=== PATIENT | female | born 1980 | race Caucasian/White ===

== ENCOUNTER 2017-11-27 09:13 | Day surgery (SDC) | payer OTHER, SELFPAY ==
[2017-11-18 15:24] VITALS: BMI 32.1
[2017-11-27] VITALS (12 sets, daily range): BP systolic 98–125; BP diastolic 51–71; PULSE 61–90; RESP 13–17; TEMP 36.2–37; O2SAT 92–100; BMI 32.1
[2017-11-27] MEDS: LACTATED RINGERS 1,000 ML 42 ML IV ×2 (09:30→12:30)
--- NOTE | 2017-11-27 10:24 | PM.PREOP ---
Pre-operative Note Interval Note Pre-op Check: History & Physical Reviewed by Physician
[2017-11-27] MEDS: CEFAZOLIN 1 GM VIAL 2 GM IV (10:58)
--- NOTE | 2017-11-27 11:28 | SUR.OPER ---
Supine on padded OR bed, head on pillow, arms secured on padded arm boards at <90 degrees abduction, right leg is under control of surgeon, left leg is taped over the blanket to the bed, safety belt at thigh.
[2017-11-27] MEDS: BUPIVACAINE 0.25% (PF) 30 ML VIAL INJ (11:36)
[2017-11-27] MEDS: fentaNYL 100 MCG/2 ML INJ 25 MCG IV ×2 (13:32→13:39)
--- NOTE | 2017-11-27 13:44 | PM.OP.1 ---
Operative Date/Time/Diagnoses - Date of procedure: 11/27/17 Time of procedure: 11:44 Pre-op diagnosis: Right hallux valgus right foot bunion Post-op diagnosis: same Procedure & Clinicians Procedure: Right 1st metatarsal osteotomy Modified Rea procedure Right foot bunionectomy Same procedure as scheduled: Yes Indications: This is a 37-year-old female with many years of symptomatic bunions. She had pain despite shoe wear modification and activity modification. She desires to wear reasonable shoes. 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 The risks and benefits and alternatives to surgery were discussed. Risks include pain bleeding infection nonunion malunion transfer metatarsalgia recurrence hallux varus implant prominence damage to nearby structures numbness DVT PE and anesthetic risks. She signed a written consent form. Surgeon: Harjinder [place] Sales Executive: Etelvina Conner Click Yes if Unassisted: No Anesthesia Type: General and Local Operative Notes Findings: Large bunion with cartilage loss over the medial aspect of the 1st metatarsal head. Closure Type: primary Specimen(s): none sent Implants & Drains: 2.0 mm stainless steel screws X 2 Synthes Estimated Blood Loss (mL): 10 Blood products transfused: none Tourniquet time (min): 103 Procedure in detail: The patient was met in the preop hold area on the day of the procedure the operative extremity was signed. Consent was verified. She desired to proceed. She was brought to the operating room and surrendered to anesthesia. Once general anesthesia been obtained she was placed in the supine position all bony prominences well padded. She was then prepped and draped in the standard sterile fashion. Surgical time-out was held again for the patient procedure identity allergies antibiotics images all were in agreement we proceeded. An Esmarch was used to exsanguinate the limb and the thigh tourniquet was elevated to 250 mm of mercury. Fluoroscopy was used to identify the TMT and MTP joints as well as to jos the trajectory of the desired osteotomy. The sesamoids were also localized under fluoroscopy and a 3 cm incision was made just lateral to that. Scissors were used to dissect longitudinally down to the sesamoid. The intermetatarsal ligaments and the attachment of the adductor was identified. Flexor hallucis brevis was identified and protected. I then sharply released the intermetatarsal ligament and the adductor from the sesamoid and the proximal phalanx. I then sharply incised the interval between the sesamoid and the capsule to allow for free mobility. Satisfied with my release I proceeded to the 1st metatarsal osteotomy. An incision was made medially in line with the 1st metatarsal from the base of the proximal phalanx up to the tarsometatarsal joint. Scissor dissection was used distally to identify the branch of the nerve and was protected throughout the case. Once down to the capsular layer I created full-thickness skin flaps. I then made a longitudinal incision in the capsule and periosteum and freed the capsule from the the foot surrounding bone sharply with a knife. Once the capsule was adequately dissected and freed the periosteum more proximally through the shaft taking care to not release soft tissue off the plantar surface of the distal metatarsal. Two small windows were made for retractors. Then identified the osteotomy site centrally in the metatarsal head and then proximally at the flare. I started the osteotomy at the dorsal 1/3 margin and and distally and the plantar 1/3 margin proximally. I then made a transverse distal cut with the appropriate angle. I then left the saw blade in place and made a perpendicular cut to that plantarly in the proximal transverse cut. A 2nd proximal transverse cut was made leaving a 4 mm bone block for to be removed. I then made a longitudinal cut connected the transverse cuts. I then used a [place] to separate the periosteum on the lateral side and essentially complete the cuts. I then grasped the distal dorsal shaft piece with a towel clamp trans plated it medially while my finger translated the metatarsal head laterally. I then placed a scarf metatarsal the clamp and took x-rays confirming that I liked the shift. I pulled on the plantar capsule and found I was able to reduce the sesamoids nicely. Satisfied with the reduction and the bunion correction I placed 2 screws in lag fashion from dorsal to the plantar surface I ensured that the distal screw was unicortical and did not go through the head. Images were then taken and the clamp was removed. I then used a saw to take the medial shelf off as well as a small portion of the metatarsal head that was still prominent. I ensured to leave a significant amount to provide adequate bony support and prevent hallux varus. Those bony fragments were placed plantarly at the proximal osteotomy site. I assessed that the 1st toe did not impinge upon the 2nd and that an Nick osteotomy was not necessary. I then irrigated the wound copiously and sharply removed excess capsular tissue. I started the closure with the capsular tissue and performed a plantar distal to proximal dorsal shift, this took the toe out of pronation and finalize the reduction of the sesamoids. After placing 3 of the sutures in a figure 8 fashion I then closed the periosteal layer with 0 Vicryl. 3 0 Vicryl was placed in the dermis and 3 O nylon vertical mattress sutures were placed for in the skin. A 10 cc of 0.25% Marcaine without epinephrine were placed about the incisions. In a sterile dressing was applied. A bunion dressing was applied as well to hold the toe in adequate position. Complications: none Condition: stable Disposition: same day surgery Plan for aftercare: Leave dressing on until follow-up in 2 weeks. At 2 weeks dressing and sutures will be removed. I will replace dressing at the 2 week jos which she will wear for the next 2 weeks. Follow-up at 4 weeks and will then allow for weight-bearing in a postoperative shoe. She can transition to normal shoes at 8 weeks.
[2017-11-27] MEDS: MEPERIDINE 50 MG/ML IM (13:49)
[2017-11-27] MEDS: fentaNYL 100 MCG/2 ML INJ 50 MCG IV ×3 (13:55→14:14)
[2017-11-27] MEDS: ONDANSETRON 4 MG/2 ML INJ IV (13:57)
[2017-11-27] MEDS: LORazepam 2 MG/ML SYRINGE 0.5 MG IV ×2 (14:00→16:01)
[2017-11-27] MEDS: OXYCODONE/ACETAMINOPHEN 5/325 TABLET 2 TAB PO (14:34)
--- NOTE | 2017-11-27 16:12 | SUR.PHASEII ---
pt with pain ..and nausea.. had 2 percocet an hour ago and prior to that iv meds.. foot is wnl..nv checks normals; anesthesia gone.. dr marsh tracked down and ordered 2 additional percocet... pt nausea better after reglan at 1530.. dressing in cdi..awaiting better pain control before discharge
--- NOTE | 2017-11-27 16:46 | SUR.PHASEII ---
1620.. pt feeling much better.. pain3/10.. no nausea... alert.. needs to void.. wants to go home..nv checks wnl.. dressing cdi.. postop shoe and ice on.. dressed and assisted to bathroom and voided..iv dcd and cannula intact.. instructions reviewed with pt and spouse.. to car in ...
== END 2017-11-27 16:35 | disposition home or self-care (01) ==
PROVIDERS: PCP Family Medicine; Visit Provider Orthopaedic Surgery
DX: M20.11 Hallux valgus (acquired), right foot (principal)
CPT/HCPCS: 28296; J0690; J1100; J2060; J2175; J2250; J2405; J2704; J3010

== ENCOUNTER → 2018-08-25 07:39 | Outpatient (CLI) | payer OTHER, SELFPAY ==
--- NOTE | 2018-08-25 | DI.MG.S_ITS ---
UNILATERAL RIGHT DIGITAL DIAGNOSTIC MAMMOGRAM POST-NEEDLE BIOPSY: 08/25/2018 CLINICAL: Right breast mass Post clip placement. Comparison is made to exam dated: 08/23/2018 mammogram - [facility]. The tissue of right breast is extremely dense, which lowers the sensitivity of mammography. The post biopsy marker placed after US guided biopsy is in expected position. IMPRESSION: POST PROCEDURE MAMMOGRAM FOR MARKER PLACEMENT Post biopsy marker in expected position. This exam was interpreted at Station ID: [id number]. NOTE: For mammograms, a report in lay terms will be sent to the patient. Approximately 15% of breast malignancies will not be visualized mammographically. In the management of a palpable breast mass, a negative mammogram must not discourage biopsy of a clinically suspicious lesion. Electronically Signed By: Piotr Dominguez M.D. sdh/:08/25/2018 17:35:35 ACR BI-RADS Category Post-procedure mammogram for marker placement
--- NOTE | 2018-08-25 | PATH_ITS ---
[facility] Accession Number: [id number] . 01 Material submitted: . RIGHT BREAST . 01 Diagnosis: Right Breast, Biopsy: Fibroadenoma, with focal associated microcalcifications. MRV/08/26/2018 . 01 Electronically signed: . Rivka Mayfield MD, Pathologist NPI- [id number] . 01 Gross description: . Received in a formalin-filled container and labeled right breast biopsy. Per the requisition, sample was collected on 08/25/2018 at approximately 9:22 a.m. Total fixation time is 12-24 hours. Specimen is received with a plastic filter. Tissue is loose in container. The specimen consists of multiple fragments of stovall-yellow soft tissue measuring 2.5 x 0.6 x 0.3 cm in aggregate. All tissue is entirely submitted in one cassette. (MR:[id number]) /FRR . 01 Pathologist provided ICD-10: D24.1 . 01 CPT . 731280 Performed at: [address] [id number] MD River Tavera MD Phone: [phone]
--- NOTE | 2018-08-25 07:41 | DI.US.S_ITS ---
ULTRASOUND GUIDED BIOPSY RIGHT BREAST USING VACUUM DEVICE WITH MARKING DEVICE INSERTED AND POST MAMMOGRAPHIC IMAGIN08/25/2018 CLINICAL: Right breast mass. PATIENT CONSENT: Risks (minor bleeding, infection, vasovagal reaction and repeat procedure), benefits and alternatives were explained to the patient and written informed consent was obtained. Correlation is made to exams dated: 08/25/2018 mammogram - [facility], 08/23/2018 mammogram, 05/17/2018 ultrasound, 11/26/2017 ultrasound, and 05/13/2017 ultrasound - [facility]. An ultrasound guided biopsy using real-time ultrasound was performed for the concerning circumscribed oval mass located in the right breast at 10 o'clock anterior depth. This was described on the previous mammography and ultrasound reports. The skin was prepped in the usual manner. Local anesthetic was administered to the access site. A skin koffi was made in the breast. The abnormality was approached from the lateral aspect. A 13 gauge biopsy needle was placed adjacent to the abnormality under ultrasound guidance. Once the needle was documented to be in the correct location, six specimens were obtained using the Mammotome biopsy system. The patient received additional local anesthetic during the procedure. A Vision clip was inserted into the biopsy cavity. A skin closure strip and a sterile dressing were applied to the access site. Post procedure mammographic imaging demonstrates the location device at the targeted area and partial removal of the abnormality. The specimens were sent to the laboratory for pathological analysis. IMPRESSION: ULTRASOUND GUIDED BIOPSY BENIGN Ultrasound guided biopsy of the mass in the right breast at 10 o'clock anterior depth was successful. Pathology indicates benign fibroadenoma (FA) with micro-calcifications present. Pathology results are concordant with imaging findings. This exam was interpreted at Station ID: [id number]. SUMMARY: Recommend initiating routine screening mammography at age 40. Piotr Vaughan M.D. [facility],aty/:09/02/2018 09:26:42
== END ==
PROVIDERS: PCP Family Medicine; Visit Provider Specialist
DX: D24.1 Benign neoplasm of right breast (principal)
CPT/HCPCS: 19083; 77065; 88305

== ENCOUNTER 2018-09-02 11:46 | Day surgery (SDC) | payer OTHER, SELFPAY ==
[2018-08-24 12:06] VITALS: BMI 32.9
[2018-09-02] VITALS (12 sets, daily range): BP systolic 117–145; BP diastolic 64–86; PULSE 65–103; RESP 11–17; TEMP 36–36.9; O2SAT 95–100; BMI 31.6
--- NOTE | 2018-09-02 | PATH_ITS ---
[facility] Accession Number: [id number] . 01 Material submitted: . RIGHT BREAST MASS . 01 Clinical history: . SUTURE: LONG IS ANTERIOR, SHORT IS SUPERIOR . 01 Diagnosis: Right Breast Mass, Excision: Fibroadenoma (2.8 cm) with associated microcalcifications. Background benign breast parenchyma with dense stromal fibrosis, microcysts and rare microcalcifications. Negative for atypia, carcinoma in situ, and invasive malignancy. MRV/09/07/2018 . 01 Electronically signed: . Rivka Mayfield MD, Pathologist NPI- [id number] . 01 Gross description: . Received: In formalin, labeled right breast mass, suture long-anterior, short-superior. Specimen: One right partial mastectomy. Weight: 26 grams. Measurement: 2.5 cm anterior to posterior, 4.7 cm medial to lateral, and 4.5 cm superior to inferior. Skin ellipse: Absent. Wire: Absent. Margins: Oriented by surgeon with short superior suture, long anterior suture, and inked as follows: posterior=black; anterior=purple; superior=blue; inferior=green; medial=yellow; lateral=orange. Sliced: Lateral to medial into 17 slices. Lesions: One lesion is identified. Description: Firm, cee-white lobulated. Size: 2.8 x 1.8 x 1.2 cm. Slices involved: Slices #2-#7. Biopsy site: Absent. Distance to margins: 0.2 cm from the anterior margin, less than 0.1 cm from the posterior margin, 0.5 cm from the superior margin, 1.3 cm from the inferior margin, 0.5 cm from the lateral margin, and 2.4 cm from the medial margin. Other: The remaining cut surface consists predominantly of cee-white fibrous tissue. No additional discrete masses or lesions are grossly identified. Fixation time: The specimen was placed in formalin on 09/02/2018 with no time given. The approximate total fixation time is calculated to be 69 hours 30 minutes. Sections: A1-A4: Slice 1, medial end of specimen, perpendicular, entirely submitted inferior to superior, uninvolved tissue directly lateral to the mass. A5-A7: Slice 2, trisected and entirely submitted superior to inferior. A8-A10: Slice 3, mass present, trisected and entirely submitted superior to inferior. A11-A12: Slice 4, mass present, bisected and entirely submitted superior to inferior. A13-A14- Slice 5, mass present, trisected superior to inferior, superior two-thirds submitted. A15-A16: Slice 6, mass present, trisected superior to inferior, superior two-third submitted. A17-A18: Slice 7, mass present, trisected superior to inferior, superior two-thirds submitted. A19-A20: Slice 8, uninvolved tissue directly medial to mass, bisected and entirely submitted superior to inferior. A21: Slice 9, fibrous tissue, no mass present, trisected superior to inferior, middle third submitted. A22: Slice 10, fibrous tissue, no mass present, trisected superior to inferior, middle third submitted. A23: Slice 11, fibrous tissue, no mass present, bisected superior to inferior, inferior half submitted. A24: Slice 12, fibrous tissue, no mass present, bisected superior to inferior, superior half submitted. A25: Slice 14, fibrous tissue, no mass present, bisected superior to inferior, superior half submitted. A26: Slice 16, entirely submitted. A27: Slice 17, lateral margin, perpendicularly sectioned, entirely submitted. Note: This specimen has been reviewed by Dr. Compa Mayfield. ([id number]) /MRV . 01 Pathologist provided ICD-10: D24.1 . 01 CPT . 922963 Performed at: [address] [address], [place], [place] [id number] MD River Tavera MD Phone: [phone]
--- NOTE | 2018-09-02 12:32 | PM.PREOP ---
Pre-operative Note Interval Note History & Physical reviewed/Exam performed by Physician: Yes Changes to H&P: Yes H&P completed within 30 days and has changed as indicated here:: Patient underwent minimally invasive biopsy of 1 lesion in the breast. This was benign. She vacillate id about having this lump removed 1st his observing it versus having a minimally invasive biopsy. She ultimately decided to have it removed. risks of bleeding infection scar worked discussed with her.
[2018-09-02] MEDS: LACTATED RINGERS 1,000 ML 42 ML IV (12:37)
[2018-09-02] MEDS: CEFAZOLIN 2 GM/100 ML FROZ.PIGGY IV (12:44)
--- NOTE | 2018-09-02 12:55 | SUR.OPER ---
Supine on padded OR bed, head on pillow, arms secured on padded arm boards at <90 degrees abduction, legs uncrossed, safety belt at thigh, tape over blanket over lower legs.
[2018-09-02] MEDS: BUPIVACAINE 0.5% (PF) VIAL 30 ML INJ (13:01)
--- NOTE | 2018-09-02 13:27 | PM.OP.1 ---
Operative Date/Time/Diagnoses Date of procedure: 09/02/18 Time of procedure: 13:27 Pre-op diagnosis: Right breast mass Post-op diagnosis: same Procedure & Clinicians Procedure: Lumpectomy Same procedure as scheduled: Yes Indications: Palpable mass. Patient vacillating between having minimally invasive biopsy, continued observation or lumpectomy. She ultimately decided to have a lumpectomy. Surgeon: Suleiman Garcia Click Yes if Unassisted: Yes Anesthesia Type: General Operative Notes Findings: Nodular breast tissue Closure Type: primary Specimen(s): other (Breast mass) Estimated Blood Loss (mL): 5 Blood products transfused: none Procedure in detail: The patient is placed supine on the operating room table and underwent general LMA anesthesia. She was prepped and draped in the usual fashion. curvilinear incision was made overlying the palpable mass. The incision was carried through the subcu fat and the mass was excised using cautery. There were generous margins around it. the tissue was firm and nodular. The specimen was marked with suture and submitted. Hemostasis was achieved. The space was closed with interrupted 3 0 Vicryl. The subcu was closed with interrupted 3 0 Vicryl. The skin was closed running 4 0 Vicryl subcuticular stitch and Steri-Strips. dressing was applied. The patient was awakened, extubated and taken recovery room good condition. Complications: none Condition: stable Disposition: PACU Plan for aftercare: In the office
--- NOTE | 2018-09-02 13:30 | P.OP_ITS ---
Operative Date/Time/Diagnoses Date of procedure: 09/02/18 Time of procedure: 13:27 Pre-op diagnosis: Right breast mass Post-op diagnosis: same Procedure & Clinicians Procedure: Lumpectomy Same procedure as scheduled: Yes Indications: Palpable mass. Patient vacillating between having minimally invasive biopsy, continued observation or lumpectomy. She ultimately decided to have a lumpectomy. Surgeon: Suleiman Garcia Click Yes if Unassisted: Yes Anesthesia Type: General Operative Notes Findings: Nodular breast tissue Closure Type: primary Specimen(s): other (Breast mass) Estimated Blood Loss (mL): 5 Blood products transfused: none Procedure in detail: The patient is placed supine on the operating room table and underwent general LMA anesthesia. She was prepped and draped in the usual fashion. curvilinear incision was made overlying the palpable mass. The incision was carried through the subcu fat and the mass was excised using cautery. There were generous margins around it. the tissue was firm and nodular. The specimen was marked with suture and submitted. Hemostasis was achieved. The space was closed with interrupted 3 0 Vicryl. The subcu was closed with interrupted 3 0 Vicryl. The skin was closed running 4 0 Vicryl subc uticular stitch and Steri-Strips. dressing was applied. The patient was awakened, extubated and taken recovery room good condition. Complications: none Condition: stable Disposition: PACU Plan for aftercare: In the office
--- NOTE | 2018-09-02 14:07 | SUR.PHASEI ---
ASSUMED CARE OF PT FROM VIMAL MURILLO AT 1350. PT SITTING UP, SIPPING WATER WITHOUT ANY DIFFICULTLY. PT REPORTS NAUSEA HAD RESOLVED. DRSG TO SURGICAL SITE C/D/I.
[2018-09-02] MEDS: OXYCODONE/ACETAMINOPHEN 5/325 TABLET 1 TAB PO (14:10)
== END 2018-09-02 14:42 | disposition home or self-care (01) ==
PROVIDERS: PCP Family Medicine; Visit Provider Specialist
PROC: (CPT 19301; principal; 2018-09-02 13:00)
DX: D24.1 Benign neoplasm of right breast (principal)
CPT/HCPCS: 19301; 88305; J0690; J1100; J1885; J2250; J2405; J2704; J3010

== ENCOUNTER → 2019-03-09 17:42 | Outpatient (CLI) | payer OTHER, SELFPAY ==
--- NOTE | 2019-03-09 | DI.MRI.S_ITS ---
PROCEDURE: MR LUMBAR SPINE WO CON INDICATIONS: Low back pain TECHNIQUE: Noncontrast sagittal T1 spin echo and T2 fast echo, sagittal STIR, axial T1 and T2 fast spin echo through the lumbar spine. In cases with scoliosis, additional coronal T2 fast spin echo may be performed. COMPARISON: None. FINDINGS: Image quality: Excellent. Alignment and Curvature: There is normal bony alignment. Bone Marrow: Marrow is of normal overall signal. No acute vertebral body compression fractures. Spinal Cord: Conus medullaris terminates at the L1-2 disc level. Visualized cord demonstrates normal signal and size. Paraspinous Soft Tissues: No paravertebral masses. L1-L2: Normal appearance. L2-L3: Slight loss of disc signal. Minimal, diffuse disc bulge. No central stenosis. No neural foraminal narrowing. No neural compression. L3-L4: Slight loss of the signal. Minimal, diffuse disc bulge. No central stenosis. No neural foraminal narrowing. No neural compression. L4-L5: Loss of the signal. Mild diffuse disc bulge. No central stenosis. Mild bilateral neural foraminal narrowing. No neural compression. L5-S1: Normal appearance. IMPRESSION: 1. Mild multilevel degenerative disc disease. 2. No central stenosis. 3. Mild bilateral L4-L5 neural foraminal narrowing. 4. No neural compression. Dictated by: Flaquita Yanes MD, PhD on 03/10/2019 at 13:10 Approved by: Flaquita Yanes MD, PhD on 03/10/2019 at 13:13
== END ==
PROVIDERS: PCP Family Medicine; Visit Provider Family Medicine
DX: M54.5 Low back pain (principal); M51.16 Intervertebral disc disorders with radiculopathy, lumbar region; M48.061 Spinal stenosis, lumbar region without neurogenic claudication
CPT/HCPCS: 72148

== ENCOUNTER → 2019-09-20 11:07 | Outpatient (CLI) | payer OTHER, SELFPAY ==
--- NOTE | 2019-09-20 | DI.MRI.S_ITS ---
PROCEDURE: MR ELBOW RT WO CON INDICATIONS: Pain in right elbow TECHNIQUE: Noncontrast coronal proton density fast spin echo and T2 fast spin echo with fat saturation, axial and sagittal T1 spin echo and T2 fast spin echo with fat saturation through the elbow. COMPARISON: None. FINDINGS: Image quality: Excellent. Lateral structures: The lateral ulnar collateral ligament and radial collateral ligament both appear mildly thickened in the anterior proximal insertion. The overlying common extensor tendon also appears thickened with heterogeneous intrasubstance T2 hyperintense signal suggestive of tendinosis and low-grade intrasubstance partial thickness tear. Medial structures: The ulnar collateral ligament appears intact. The overlying common flexor tendon appears normal. The ulnar nerve appears normal in size and signal within the cubital tunnel. Anterior structures: The biceps and brachialis tendons both appear intact as they insert onto the proximal radius and ulna, respectively. No bicipitoradial bursal fluid. The median and radial neurovascular bundles appear normal; no focal muscle atrophy to suggest nerve impingement. Posterior structures: The conjoint triceps tendon from the long and lateral heads appears intact. The medial head of the triceps tendon also appears normal, with direct muscle insertion onto the olecranon. No olecranon bursal fluid. Bone and cartilage: No bone marrow contusions or fractures. No osteochondral injuries. IMPRESSION: 1. Finding is suggestive of lateral epicondylitis with tendinosis/low-grade partial-thickness tear involving proximal common extensor tendon origin and low-grade sprain involving lateral collateral ligaments. 2. Rest of the elbow tendons and ligaments are grossly intact. No gross muscle signal abnormality. No soft tissue mass or ganglion cyst formation. 3. No marrow edema. No fracture or dislocation. Dictated by: Lavon Arzate M.D. on 09/20/2019 at 12:31 Approved by: Lavon Arzate M.D. on 09/20/2019 at 12:42
== END ==
PROVIDERS: PCP Family Medicine; Referring Provider Family Medicine; Visit Provider Family Medicine
DX: M25.521 Pain in right elbow (principal)
CPT/HCPCS: 73221

== ENCOUNTER → 2020-06-15 16:08 | Outpatient (CLI) | payer OTHER, SELFPAY ==
--- NOTE | 2020-06-15 16:11 | DI.ECHO.S_ITS ---
[facility]---------+ [facility] +---------+ : : [address] : [address] : : : : [id number] : : : : Phone: [phone]+ Echocardiogram Report + + :Name: BART BENAVIDES Study Date: 06/15/2020 Height: 62 in : :[facility] ReadingLocation: Weight: 180 lb : : Gender: Female BSA: 1.8 m2 : :: 1980 Age: 40 yrs BP: 120/76 mmHg: :Reason For Study: Palpitations, Dizziness, Chest Pain : : Performed By: Cheryl Nicole : :Referring: CECY MORRIS M : + + Interpretation Summary The left ventricle is normal in size. The ejection fraction is estimated to be 55-60%. The right ventricle is normal in size and function. No significant valvular pathology seen. Procedure: A two-dimensional transthoracic echocardiogram with color flow and Doppler was performed. The study quality was technically adequate. There is no prior echocardiogram noted for this patient. The patient was in normal sinus rhythm during the exam. Left Ventricle: The left ventricle is normal in size. Left ventricular wall thickness is normal. There is no thrombus. The ejection fraction is estimated to be 55-60%. There are no focal wall motion abnormalities. MV E/A: 1.1 Med Peak E' Edward: 9.1 cm/sec E/E' med: 9.2 No significant diastolic dysfunction. Right Ventricle: The right ventricle is normal in size and function. Atria: Both atria are normal in size. There is no Doppler evidence for an interatrial shunt. Mitral Valve: The mitral valve is normal in structure and function. There is no mitral regurgitation noted. Aortic Valve: The aortic valve is normal in structure and function. The aortic valve is trileaflet. There is no aortic valve stenosis. No aortic regurgitation is present. Tricuspid Valve: The tricuspid valve leaflets are thin and pliable. The right ventricular systolic pressure is estimated to be at least 23 mmHg based on an estimated right atrial pressure of 8 mm Hg. There is trace tricuspid regurgitation. Pulmonic Valve: The pulmonic valve is not well visualized. Great Vessels: The aortic root is normal size. The ascending aorta is normal in size. The aortic arch is normal in size. The IVC is of normal diameter and collapses less than 50% with a sniff. This suggests a right atrial pressure of 8 mm Hg. Pericardium/ Pleura There is no pericardial effusion. MMode/2D Measurements & Calculations LVIDd: 4.6 cm LVOT diam: 1.9 cm LVIDs: 3.0 cm Ao root diam: 2.7 cm FS: 33.9 % asc Aorta Diam: 2.5 cm EPSS: 0.28 cm Ao Arch Diam (Prox Trans): 2.3 cm IVSd: 0.68 cm LVPWd: 0.57 cm LV black. diameter/BSA (cm/m^2): 2.5 LV sys. diameter/BSA (cm/m^2): 1.7 LA A2 area: 18.9 cm2 RA long axis: 4.7 cm LA A4 area: 17.6 cm2 RA area: 15.1 cm2 LA length (vol): 5.2 cm RA vol: 41.0 ml LA vol: 54.8 ml RA : 22.4 ml/m2 LA vol index: 30.0 ml/m2 IVC diam: 2.1 cm RVD1 (basal): 3.0 cm RVD2 (mid): 2.7 cm TAPSE: 2.7 cm Doppler Measurements & Calculations Ao V2 max: 154.1 cm/sec LVOT Max Edward: 100.8 cm/sec Ao V2 mean: 108.5 cm/sec LV V1 max P.1 mmHg Ao max P.5 mmHg LV V1 VTI: 22.3 cm Ao mean P.3 mmHg LACYE(I,D): 1.9 cm2 Ao V2 VTI: 33.7 cm LACEY(V,D): 1.9 cm2 sev ratio: 0.66 LACEY indexed to BSA (cm^2/m^2): 1.1 MV E max edward: 84.5 cm/sec TR max edward: 192.3 cm/sec MV A max edward: 79.4 cm/sec TR max P.8 mmHg MV E/A: 1.1 PA V2 max: 88.2 cm/sec Med Peak E' Edward: 9.1 cm/sec PA V2 mean: 59.4 cm/sec E/E' med: 9.2 PA mean P.6 mmHg Lat Peak E' Edward: 12.2 cm/sec PA Accel Time: 0.16 sec E/E' lat: 6.9 E/e' average: 8.1 MV dec time: 0.12 sec MV P1/2t: 36.6 msec MV P1/2t max edward: 85.4 cm/sec SV(LVOT): 64.9 ml MVA(2t): 6.0 cm2 Reading Physician:12:31 PM
== END ==
PROVIDERS: PCP Family Medicine; Referring Provider Family Medicine; Visit Provider Family Medicine
DX: R07.89 Other chest pain (principal); R00.2 Palpitations; R42 Dizziness and giddiness
CPT/HCPCS: 93306

== ENCOUNTER → 2020-07-12 16:16 | Outpatient (CLI) | payer OTHER, SELFPAY ==
--- NOTE | 2020-07-12 16:18 | DI.MG.S_ITS ---
BILATERAL DIGITAL SCREENING MAMMOGRAM 3D/2D WITH CAD: 07/12/2020 CLINICAL: Routine screening. Comparison is made to exams dated: 08/25/2018 mammogram - [facility], 08/23/2018 mammogram, and 05/17/2018 ultrasound - [facility]. The tissue of both breasts is extremely dense, which lowers the sensitivity of mammography. Current study was also evaluated with a Computer Aided Detection (CAD) system. No significant masses, calcifications, or other findings are seen in either breast. There has been no significant interval change. IMPRESSION: NEGATIVE There is no mammographic evidence of malignancy. A 1 year screening mammogram is recommended. This exam was interpreted at Station ID: [id number]. NOTE: For mammograms, a report in lay terms will be sent to the patient. Approximately 15% of breast malignancies will not be visualized mammographically. In the management of a palpable breast mass, a negative mammogram must not discourage biopsy of a clinically suspicious lesion. Electronically Signed By: Tyshawn bullock/breanne:07/13/2020 07:18:07 letter sent: Normal Exam ACR BI-RADS Category 1: Negative 3341F
== END ==
PROVIDERS: PCP Family Medicine; Referring Provider Family Medicine; Visit Provider Family Medicine
DX: Z12.31 Encounter for screening mammogram for malignant neoplasm of breast (principal)
CPT/HCPCS: 77063; 77067

== ENCOUNTER → 2021-12-17 15:36 | Outpatient (CLI) | payer OTHER, SELFPAY ==
--- NOTE | 2021-12-17 15:38 | DI.MRI.S_ITS ---
PROCEDURE: MR LUMBAR SPINE WO CON INDICATIONS: Radiculopathy, lumbar TECHNIQUE: Noncontrast sagittal T1 spin echo and T2 fast echo, sagittal STIR, and T2 fast spin echo through the lumbar spine. In cases with scoliosis, additional coronal T2 fast spin echo may be performed. COMPARISON: [facility], MR, MR LUMBAR SPINE WO CON, 03/09/2019, 17:52. FINDINGS: Image quality: This examination is limited by involuntary motion artifact. Alignment and Curvature: There is normal bony alignment. Bone Marrow: Marrow is of normal overall signal. No acute vertebral body compression fractures. Spinal Cord: Conus medullaris terminates at the L1 level. Visualized cord demonstrates normal signal and size. Paraspinous Soft Tissues: No paravertebral masses. T12-L1: Normal appearance. L1-L2: Normal appearance. L2-L3: Normal appearance. L3-L4: No significant abnormality is seen. L4-L5: The disc height and disk signal are well-preserved. Mild to moderate disc bulge is seen. Mild to moderate facet hypertrophy is seen at this level. Moderate bilateral neural foraminal narrowing is seen. No significant central canal narrowing is seen. These imaging findings have progressed compared to the prior study. L5-S1: No significant abnormality is seen at this level IMPRESSION: Moderate bilateral neural foraminal narrowing can be seen at the L4-L5 level, which is mildly progressed compared to 2019. Dictated by: Kenton Casarez M.D. on 12/17/2021 at 16:17 Approved by: Kenton Casarez M.D. on 12/17/2021 at 16:19
--- NOTE | 2021-12-17 15:38 | DI.MRI.S_ITS ---
PROCEDURE: MR SHOULDER RT WO CON INDICATIONS: Pain in right shoulder TECHNIQUE: Noncontrast oblique coronal T2 fast spin echo with fat saturation, oblique sagittal T1 spin echo and T2 fast spin echo with fat saturation, axial T1 spin echo and T2 fast spin echo with fat saturation through the shoulder. COMPARISON: None. FINDINGS: Image quality: Excellent. Rotator cuff: The supraspinatus, infraspinatus, and subscapularis tendons appear intact throughout. Sagittal images demonstrate no muscle atrophy. Bones and bursae: No bone marrow contusions or fractures. Moderate acromioclavicular joint degeneration. The acromion demonstrates conventional anatomy, without an os acromiale. No pathologic subacromial-subdeltoid or subcoracoid bursal fluid is present. Capsule and soft tissues: Labrum is grossly unremarkable The long head of the biceps tendon demonstrates normal location and morphology. The rotator interval appears normal, without fibrosis. The coracohumeral ligament is normal in thickness. IMPRESSION: 1. No rotator cuff tear. 2. Acromioclavicular joint osteoarthritis. Dictated by: Morena Balderas M.D. on 12/18/2021 at 9:04 Approved by: Morena Balderas M.D. on 12/18/2021 at 9:05
== END ==
PROVIDERS: PCP Family Medicine; Referring Provider Family Medicine; Visit Provider Family Medicine
DX: M75.40 Impingement syndrome of unspecified shoulder (principal); M54.16 Radiculopathy, lumbar region; M19.011 Primary osteoarthritis, right shoulder; M48.061 Spinal stenosis, lumbar region without neurogenic claudication; M25.511 Pain in right shoulder
CPT/HCPCS: 72148; 73221

== ENCOUNTER → 2022-05-27 13:10 | Outpatient (CLI) | payer OTHER, SELFPAY ==
--- NOTE | 2022-05-27 | DI.MG.S_ITS ---
BILATERAL DIGITAL SCREENING MAMMOGRAM 3D/2D WITH CAD: 05/27/2022 CLINICAL: Routine screening. Comparison is made to exams dated: 07/12/2020 mammogram - [facility], 08/23/2018 mammogram, and 05/17/2018 ultrasound - [facility]. Both breasts are heterogeneously dense, which may obscure small masses (category c / 51-75% glandular tissue). Current study was also evaluated with a Computer Aided Detection (CAD) system. No significant masses, calcifications, or other findings are seen in either breast. There has been no significant interval change. IMPRESSION: NEGATIVE There is no mammographic evidence of malignancy. A 1 year screening mammogram is recommended. Based on the Tyrer Cuzick model (a risk assessment model) the patient's lifetime risk is 10.2% and her 10 year risk is 1.5%. According to the ACR, ACS, and NCCN guidelines, an annual breast MRI exam along with mammogram is recommended if the patient's lifetime risk is 20% or greater. This exam was interpreted at Station ID: [id number]. NOTE: For mammograms, a report in lay terms will be sent to the patient. Approximately 15% of breast malignancies will not be visualized mammographically. In the management of a palpable breast mass, a negative mammogram must not discourage biopsy of a clinically suspicious lesion. Electronically Signed By: Tyshawn bullock/breanne:05/27/2022 15:25:31 letter sent: Normal Exam ACR BI-RADS Category 1: Negative 3341F
== END ==
PROVIDERS: PCP Family Medicine; Referring Provider Family Medicine; Visit Provider Family Medicine
DX: Z12.31 Encounter for screening mammogram for malignant neoplasm of breast (principal)
CPT/HCPCS: 77063; 77067

== ENCOUNTER → 2023-06-20 12:55 | Outpatient (CLI) | payer OTHER, SELFPAY ==
--- NOTE | 2023-06-20 | DI.MG.S_ITS ---
BILATERAL DIGITAL SCREENING MAMMOGRAM 3D/2D WITH CAD: 06/20/2023 CLINICAL: Routine screening. Comparison is made to exams dated: 05/27/2022 mammogram, 07/12/2020 mammogram - [facility], and 08/23/2018 mammogram - [facility]. Both breasts are heterogeneously dense, which may obscure small masses (category c / 51-75% glandular tissue). Current study was also evaluated with a Computer Aided Detection (CAD) system. There is a biopsy clip in the right breast. No significant masses, calcifications, or other findings are seen in either breast. There has been no significant interval change. IMPRESSION: BENIGN There is no mammographic evidence of malignancy. A 1 year screening mammogram is recommended. Based on the Tyrer Cuzick model (a risk assessment model) the patient's lifetime risk is 10.2% and her 10 year risk is 1.6%. According to the ACR, ACS, and NCCN guidelines, an annual breast MRI exam along with mammogram is recommended if the patient's lifetime risk is 20% or greater. This exam was interpreted at Station ID: [id number]. NOTE: For mammograms, a report in lay terms will be sent to the patient. Approximately 15% of breast malignancies will not be visualized mammographically. In the management of a palpable breast mass, a negative mammogram must not discourage biopsy of a clinically suspicious lesion. Electronically Signed By: Tabatha Dalton M.D., PH.D basia/breanne:06/22/2023 08:49:54 letter sent: Normal Exam ACR BI-RADS Category 2: Benign Finding(s) 3342F
== END ==
LOC: MAMMO 12:56
PROVIDERS: PCP Family Medicine; Referring Provider Family Medicine; Visit Provider Family Medicine
DX: Z12.31 Encounter for screening mammogram for malignant neoplasm of breast (principal); R92.333 Mammographic heterogeneous density, bilateral breasts
CPT/HCPCS: 77063; 77067

== ENCOUNTER → 2023-10-02 09:51 | Outpatient (CLI) | payer OTHER, SELFPAY ==
--- NOTE | 2023-10-02 09:53 | DI.US.S_ITS ---
PROCEDURE: US PELVIC COMPLETE INDICATIONS: RIGHT PELVIC PAIN TECHNIQUE: Real-time scanning was performed of the pelvic organs, with image documentation. Additional endovaginal scanning was necessary due to incomplete visualization of the adnexal and endometrial structures by transabdominal scanning. COMPARISON: None. FINDINGS: Uterus: Uterus is anteverted and normal in size at 10.4 x 5.8 x 7.8 cm. The myometrium is homogeneous. The endometrium measures 18.3 mm combined thickness. Ovaries: The right ovary measures 2.7 x 1.5 x 1.9 cm, with a calculated ovarian volume of 4.1 cc. The left ovary measures 1.2 x 3.0 x 1.3 cm, with a calculated ovarian volume of 2.5 cc. The ovaries have a normal sonographic appearance. There is a 2.0 x 1.8 x 1 point cm complex cyst in the right ovary. Less than 12 follicles can be seen in each ovary. No adnexal masses are seen. Other: No pathologic free abdominal or pelvic fluid. IMPRESSION: 1. Endometrium is thickened. Differential diagnoses are endometrial hyperplasia versus an endometrial neoplasm. Recommend gynecological consultation. 2. A complex cyst in the right ovary. Consider short-term follow-up ultrasound. We strive to produce accurate, complete, and clear reports of imaging services. To assist us in improving patient care, this report was composed using standard report templates and voice recognition software. Therefore, it may contain abnormal punctuation, insertions and/or omissions. Occasional wrong-word or sound-alike substitutions may occur. Though we review the report and make efforts to correct it, we do recommend that the report be read carefully in proper context to recognize any text inaccuracies. Dictated by: Ino Velasquez M.D. on 10/03/2023 at 7:33 Approved by: Ino Velasquez M.D. on 10/04/2023 at 9:05
== END ==
PROVIDERS: PCP Family Medicine; Referring Provider Family Medicine; Visit Provider Family Medicine
DX: R10.2 Pelvic and perineal pain (principal); N93.9 Abnormal uterine and vaginal bleeding, unspecified; R93.89 Abnormal findings on diagnostic imaging of other specified body structures; N83.201 Unspecified ovarian cyst, right side
CPT/HCPCS: 76830; 76856; 93976

== ENCOUNTER → 2024-04-12 12:02 | Outpatient (CLI) | payer OTHER, SELFPAY ==
--- NOTE | 2024-04-12 12:03 | DI.US.S_ITS ---
PROCEDURE: US PELVIC COMPLETE INDICATIONS: F/U COMPLEX OVARIAN CYST TECHNIQUE: Real-time scanning was performed of the pelvic organs, with image documentation. Additional endovaginal scanning was necessary due to incomplete visualization of the adnexal and endometrial structures by transabdominal scanning. COMPARISON: [facility], US, US PELVIC COMPLETE, 10/02/2023, 10:04. FINDINGS: Uterus: Uterus is anteverted and enlarged in size at 10.1 x 5.7 x 6.5 cm. The myometrium is homogeneous. The endometrium measures 14.5 mm combined thickness. Ovaries: The right ovary measures 3.1 x 3.6 x 1.9 cm, with a calculated ovarian volume of 11.5 cc. The left ovary measures 1.9 x 2.2 x 1.6 cm, with a calculated ovarian volume of 3.6 cc. Simple cyst on the right measuring 1.9 cm. Other: No pathologic free abdominal or pelvic fluid. IMPRESSION: Simple right ovarian cyst. We strive to produce accurate, complete, and clear reports of imaging services. To assist us in improving patient care, this report was composed using standard report templates and voice recognition software. Therefore, it may contain abnormal punctuation, insertions and/or omissions. Occasional wrong-word or sound-alike substitutions may occur. Though we review the report and make efforts to correct it, we do recommend that the report be read carefully in proper context to recognize any text inaccuracies. Dictated by: Kayla Mandujano M.D. on 04/12/2024 at 20:00 Approved by: Kayla Mandujano M.D. on 04/12/2024 at 20:04
== END ==
PROVIDERS: PCP Family Medicine; Referring Provider Urology; Visit Provider Urology
DX: N83.291 Other ovarian cyst, right side (principal)
CPT/HCPCS: 76830; 76856

== ENCOUNTER → 2025-03-28 09:59 | Outpatient (CLI) | payer OTHER, SELFPAY ==
--- NOTE | 2025-03-28 10:00 | DI.MG.S_ITS ---
MM diagnostic mammo BI, US breast LT limited: 03/28/2025 BI-RADS: 2 CLINICAL: 44-year old female for bilateral diagnostic mammogram and left diagnostic breast ultrasound. Tyrer-Cuzick lifetime risk of 10.6%. No personal or first- degree family history of breast cancer. The patient reports a palpable abnormality (3 months) in the left breast. The patient had a prior right breast biopsy. PRIOR EXAMS 06/20/2023, 05/27/2022, 07/12/2020, 08/25/2018. MAMMOGRAPHY TECHNIQUE: 2D and 3D (tomosynthesis) digital mammographic views obtained, with additional images as needed for full coverage. Current study was also evaluated with a Computer Aided Detection (CAD) system. ULTRASOUND TECHNIQUE Real-time cee scale imaging of the area of clinical interest was performed with image documentation. TARGETED Left Breast Ultrasound: Real-time ultrasound exam was performed focused to area of clinical and/or imaging concern. DENSITY C. The breasts are heterogeneously dense, which may obscure small masses. MAMMOGRAPHY FINDINGS Right: Biopsy marker present on the right. There are no suspicious masses, calcifications, or other findings in the breast. Left (finding-1): Upper Outer Quadrant, Middle depth: A skin marker was placed in the area of concern, and no mammographic abnormalities are identified or to account for concern by the patient of a palpable lump. No suspicious mass, asymmetry, microcalcification, or other abnormality seen. ULTRASOUND FINDINGS Left (finding-1): Upper at 12:00, 5 cm from nipple: There is a prominent ridge of fibroglandular tissue. This may correlate to the patient's reported palpable abnormality underlying the surface marker. There is no suspicious sonographic finding. IMPRESSION: Right * No evidence of malignancy with benign findings. Left * No evidence of malignancy. RECOMMENDATIONS Left * Clinical follow-up is recommended, and further management of palpable abnormalities or other focal signs or symptoms should be based on the results of clinical evaluation. If palpable abnormality or other concerning symptom persists or progresses, further clinical evaluation should be considered. Bilateral * Annual screening mammography. COMMENTS: Findings and recommendations were conveyed to the patient during today's evaluation. OVERALL ASSESSMENT CATEGORY BI-RADS-2: Benign. The [employer] recommends annual screening mammography beginning at age 40 for women with average risk of breast cancer. ELECTRONICALLY SIGNED: Malgorzata Lopez M.D. on 03/28/2025 at 12:26:28 PM PT Interpreting Station ID: [id number]
== END ==
LOC: MAMMO 09:59
PROVIDERS: PCP Family Medicine; Referring Provider Family Medicine; Visit Provider Family Medicine
DX: N63.20 Unspecified lump in the left breast, unspecified quadrant (principal); N64.4 Mastodynia; R92.333 Mammographic heterogeneous density, bilateral breasts
CPT/HCPCS: 76642; 77066; G0279

== ENCOUNTER → 2025-05-10 09:04 | Outpatient (CLI) | payer OTHER, SELFPAY ==
--- NOTE | 2025-05-10 09:05 | DI.RAD.S_ITS ---
PROCEDURE: XR LUMBAR SPINE MIN 4V INDICATIONS: BACK PAIN TECHNIQUE: 5 views of the lumbar spine were acquired, including bilateral oblique views. COMPARISON: [facility], MR, MR LUMBAR SPINE WO CON, 12/17/2021, 15:59. FINDINGS: Bones: 5 nonrib-bearing vertebrae are present. There is normal bony alignment. No vertebral body compression fractures. No suspicious bony lesions. Soft tissues: Overlying bowel gas pattern is normal. No suspicious soft tissue calcifications. Oblique images: No pars defects. IMPRESSION: No acute bony abnormality. Dictated by: Mich Bearden M.D. on 05/10/2025 at 10:31 Approved by: Mich Bearden M.D. on 05/10/2025 at 10:32
== END ==
PROVIDERS: PCP Family Medicine; Referring Provider Physical Medicine & Rehabilitation; Visit Provider Physical Medicine & Rehabilitation
DX: M54.9 Dorsalgia, unspecified (principal)
CPT/HCPCS: 72110